=== PATIENT | male | born 1975 | race Caucasian/White ===

== ENCOUNTER 2020-02-23 07:30 | Emergency (ER) | payer OTHER ==
[~2020-02-23] VITALS: Ht 175.3 cm; Wt 90.7 kg
[~2020-02-23 07:30] MED LIST: ALBU90OI INH; AMOX500 PO; CODGUAEL PO; CRUTCH2 USE; RXCODGUASY PO
[2020-02-23] MEDS ORDERED: HYDR1TAB94 PO (09:59)
== END 2020-02-23 10:05 | disposition home or self-care (01) ==
LOC: ER 07:30
DX: S66.911A Strain of unspecified muscle, fascia and tendon at wrist and hand level, right hand, initial encounter (principal); W18.30XA Fall on same level, unspecified, initial encounter
CPT/HCPCS: 29125; 73110; 73130; 99283-25